=== PATIENT | female | born 1985 | race Caucasian/White ===

== ENCOUNTER 2025-08-30 10:05 | Emergency (ER) | payer SELFPAY ==
[2025-08-30] MEDS ORDERED: Sodium Chloride 0.9% 10 ML Syringe FLUSH PRN (10:55)
[2025-08-30] MEDS ORDERED: Naloxone 0.4 MG/ML SDV IVPUSH PRN (10:55)
[2025-08-30 11:02] LABS: BASOPHILS ABSOLUTE AUTO 0.1 K/mm3 (0.0-0.2); BASOPHILS PERCENT AUTO 0.8 % (0.0-1.0); EOSINOPHILS ABSOLUTE AUTO 0.1 K/mm3 (0.0-0.4); EOSINOPHILS PERCENT AUTO 1.1 % (0.0-6.0); IMMATURE GRAN ABSOLUTE AUTO 0.03 K/mm3 (0.00-0.05); IMMATURE GRAN PERCENT AUTO 0.3 % (0.0-0.4); LYMPHOCYTES ABSOLUTE AUTO 2.1 K/mm3 (1.0-4.8); LYMPHOCYTES PERCENT AUTO 24.3 % (24.0-44.0); MEAN PLATELET VOLUME 10.3 fl (9.4-12.3); MONOCYTES ABSOLUTE AUTO 0.6 K/mm3 (0.0-0.8); MONOCYTES PERCENT AUTO 7.1 % (0.0-8.0); NEUTROPHILS ABSOLUTE AUTO 5.8 K/mm3 (1.8-7.7); NEUTROPHILS PERCENT AUTO 66.4 % (41.0-71.0); NRBC ABSOLUTE 0.00 (0.00-0.02); NRBC PERCENT 0.0 % (0.0-0.2); PLATELET COUNT,PLT 378 K/mm3 (150-400); RED BLOOD CELL COUNT 4.96 M/mm3 (4.10-5.30); WHITE BLOOD CELL COUNT,WBC 8.73 K/mm3 (3.9-11.3)
[2025-08-30 11:19] LABS: A/G RATIO 0.9 (1-2); ALANINE AMINOTRANSFERASE,ALT 20.0 U/L (14-59); ASPARTATE AMNIOTRANSFERASE,AST 15.0 U/L (15-37); BILIRUBIN TOTAL 0.6 mg/dL (0.2-1.0); BLOOD UREA NITROGEN,BUN 10.0 mg/dL (7-18); CARBON DIOXIDE,CO2 26.0 mEq/L (21-32); CHLORIDE,CL 105.0 mEq/L (98-107); CREATININE 0.8 mg/dL (0.55-1.02); EST CRCL DRUG DOSING (CG) 67.14 mL/min; ESTIMATED GFR 95.0 mL/min (>60); GLUCOSE RANDOM 96.0 mg/dL (70-99); POTASSIUM,K 3.6 mEq/L (3.5-5.1); PROTEIN TOTAL,TP 7.1 g/dl (6.4-8.2); SODIUM,NA 143.0 mEq/L (136-145)
[2025-08-30] MEDS: Ketorolac 30 MG/ML SDV IVPUSH ONE (11:19)
[2025-08-30 12:57] LABS: APPEARANCE,URINE SLT CLOUDY (Clear); GLUCOSE,URINE NEGATIVE (Negative); OCCULT BLOOD,URINE NEGATIVE (Negative)
== END 2025-08-30 13:34 | disposition home or self-care (01) ==
LOC: JD.ED 10:05
DX: M54.16 Radiculopathy, lumbar region (principal); Z79.899 Other long term (current) drug therapy
CPT/HCPCS: 36415; 72131; 80053; 81003; 85025; 85652; 86140; 96374; 96375; 99284; A9270; J1885; J2270